=== PATIENT | female | born 1970 | race Caucasian/White ===

== ENCOUNTER 2019-05-05 16:47 | Emergency (ER) | payer MEDICAID ==
[~2019-05-05] VITALS: Ht 154.9 cm; Wt 59.4 kg
[2019-05-05 17:03] VITALS: Ht 154.9 cm; Wt 59.4 kg
[2019-05-05 18:24] LABS: BASOPHIL % 0.7 % (0-2); PLATELET COUNT 260 x10^3mcL (130-400); RED CELL DISTRIBUTION WIDTH 12.4 % (11.5-14.5)
[2019-05-05 18:40] LABS: CALCIUM 8.7 mg/dL (8.5-10.1); CARBON DIOXIDE 28.4 mmol/L (21-32); CHLORIDE SERUM 105 mmol/L (98-107); CREATININE SERUM 0.4 mg/dL (0.6-1.0); GFR1 > 60 mL/min; GLUCOSE SERUM 87 mg/dL (74-106); POTASSIUM SERUM 3.6 mmol/L (3.5-5.1); SODIUM SERUM 140 mmol/L (136-145)
[2019-05-05 18:46] LABS: ALBUMIN 3.8 g/dL (3.4-5.0); ALKALINE PHOSPHATASE 85 U/L (46-116); ALT/SGPT 20 U/L (14-59); AST/SGOT 12 U/L (15-37)
[2019-05-05 19:13] VITALS: BP 111/40
== END 2019-05-05 19:13 | disposition home or self-care (01) ==
LOC: ED 16:47
PROVIDERS: Emergency Medicine
DX: J45.909 Unspecified asthma, uncomplicated (principal); G89.29 Other chronic pain; M54.9 Dorsalgia, unspecified
CPT/HCPCS: 36415; 87804; J3535; Q0092

== ENCOUNTER 2019-10-01 15:51 | Emergency (ER) | payer MEDICAID ==
[~2019-10-01] VITALS: Ht 154.9 cm; Wt 59.9 kg
[2019-10-01 15:56] VITALS: Ht 154.9 cm; Wt 59.9 kg
[2019-10-01 16:56] VITALS: BP 140/71
== END 2019-10-01 16:56 | disposition home or self-care (01) ==
LOC: ED 15:51
DX: M77.41 Metatarsalgia, right foot (principal); R03.0 Elevated blood-pressure reading, without diagnosis of hypertension; J45.909 Unspecified asthma, uncomplicated; G89.29 Other chronic pain; M06.9 Rheumatoid arthritis, unspecified; Z98.890 Other specified postprocedural states